=== PATIENT | female | born 1985 | race Caucasian/White ===

== ENCOUNTER → 2020-05-02 13:45 | Outpatient (BNVA) | payer OTHER, SELFPAY | PROVIDERS: PCP Internal Medicine; Visit Provider Surgery ==

== ENCOUNTER → 2020-05-09 10:31 | Outpatient (BNVA) | payer OTHER, SELFPAY | PROVIDERS: PCP Internal Medicine; Visit Provider Surgery | DX: Z76.89 Persons encountering health services in other specified circumstances (principal) ==

== ENCOUNTER 2020-05-18 12:48 | Outpatient (RCR) | payer OTHER, SELFPAY ==
[2020-05-29 13:47] LABS: MANUAL DIFF FLAG NO
[2020-05-29 13:53] LABS: Basophils Absolute Auto 0.1 X10*3/uL (0.0-0.2); Eosinophils Absolute Auto 0.1 X10*3/uL (0.0-0.4); Eosinophils Percent Auto 2.5 % (0-4); Hematocrit 38.4 % (37-47); Hemoglobin 12.9 g/dl (12.0-16.0); Imm Gran Abs Auto 0.01 X10*3/uL (0.00-0.03); Imm Gran Pct Auto 0.2 % (0.0-0.4); Lymphocytes Absolute Auto 2.2 X10*3/uL (1.2-4.9); Mean Corpuscular HGB Conc 33.6 g/dl (31.0-35.0); Mean Corpuscular Hemoglobin 31.6 pg (27.0-33.0); Mean Corpuscular Volume 94.1 fL (80-98); Mean Platelet Volume 10.1 fL (9.4-12.3); Monocytes Absolute Auto 0.4 X10*3/uL (0.1-1.2); Monocytes Percent Auto 7.7 % (2-11); Neutrophils Absolute Auto 2.4 X10*3/uL (2.0-8.3); Neutrophils Percent Auto 46.6 % (45-73); Platelet Count 363 X10*3/uL (160-400); Red Blood Count 4.08 X10*6/uL (4.20-5.50); Red Cell Distribution Width 12.2 % (11.0-16.0); White Blood Count 5.2 X10*3/uL (4.8-10.8)
[2020-05-29 14:15] LABS: C Reactive Protein 0.19 mg/dL (< or = 0.50); Rheumatoid Factor < 15.0 IU/mL (<15.0)
[2020-05-29 14:58] LABS: Erythrocyte Sedimentation Rate 2 MM/HR (0-20)
[2020-05-30 05:16] LABS: Lyme Abs Screen <0.90 index
[2020-05-30 13:11] LABS: Anti Nuclear Antibody Screen NEGATIVE (NEGATIVE)
[2020-05-30 13:57] LABS: Complement C3 120 mg/dL (83-193)
[2020-06-04 13:27] LABS: HLA B27 Negative (Negative)
[2020-06-11 14:22] LABS: PTT (LAC) Screen 28 sec (< OR = 40)
== END 2020-08-02 10:36 | disposition home or self-care (01) ==
LOC: HO.WCC 12:48
PROVIDERS: Visit Provider Physician Assistant
DX: S21.001D Unspecified open wound of right breast, subsequent encounter (principal); I10 Essential (primary) hypertension; Z98.82 Breast implant status
CPT/HCPCS: 11042; 36415; 84134; 85025; 85597; 85613; 85652; 85730; 86038; 86039; 86140; 86160; 86225; 86431; 86618; 86812; 99212; 99213

== ENCOUNTER 2021-04-18 07:58 | Outpatient (RCR) | payer OTHER, SELFPAY | END 2021-05-27 15:34 | disposition home or self-care (01) | LOC: HO.WCC 07:58 | PROVIDERS: Visit Provider Surgery | DX: S21.001D Unspecified open wound of right breast, subsequent encounter (principal); Z98.82 Breast implant status; Z79.2 Long term (current) use of antibiotics | CPT/HCPCS: 99213 ==

== ENCOUNTER 2021-06-05 10:41 | Outpatient (REF) | payer OTHER, SELFPAY ==
[2021-06-05 13:54] LABS: Hemoglobin 13.4 g/dl (12.0-16.0); Mean Corpuscular HGB Conc 33.5 g/dl (31.0-35.0); Mean Corpuscular Hemoglobin 31.5 pg (27.0-33.0); Mean Corpuscular Volume 93.9 fL (80.0-98.0); Mean Platelet Volume 10.2 fL (9.4-12.3); Platelet Count 386 X10*3/uL (160-400); Red Blood Count 4.26 X10*6/uL (4.20-5.50); Red Cell Distribution Width 12.3 % (11.0-16.0); White Blood Count 7.2 X10*3/uL (4.8-10.8)
[2021-06-05 14:08] LABS: Alanine Aminotransferase 12 U/L (0-31); Albumin Level 4.6 g/dL (3.5-5.0); Alkaline Phosphatase 51 U/L (39-117); Anion Gap 12 (12-20); Aspartate Amino Transferase 17 U/L (5-31); Blood Urea Nitrogen 11 mg/dL (9-16); Calcium 9.6 mg/dL (8.4-10.2); Carbon Dioxide 30 mmol/L (22-29); Chloride 102 mmol/L (96-108); Cholesterol 159 mg/dL; Estimated Glomerular Filt Rate > 60; Glucose Fasting 87 mg/dL (60-99); HDL Cholesterol 49 mg/dL; LDL Cholesterol Calculated 83 mg/dl; Potassium 4.5 mmol/L (3.3-5.1); Sodium 139 mmol/L (135-145); Total Protein 7.7 g/dL (6.5-8.0); Triglycerides 137 mg/dL
== END 2021-06-05 10:42 | disposition home or self-care (01) ==
LOC: HO.HMGCLDS 10:41
PROVIDERS: Visit Provider Internal Medicine
DX: Z00.00 Encounter for general adult medical examination without abnormal findings (principal); S06.0X9A Concussion with loss of consciousness of unspecified duration, initial encounter; X58.XXXA Exposure to other specified factors, initial encounter; Y93.9 Activity, unspecified; Y92.9 Unspecified place or not applicable; Y99.9 Unspecified external cause status
CPT/HCPCS: 36415; 80053; 80061; 85027

== ENCOUNTER 2021-06-14 08:03 | Outpatient (REF) | payer OTHER, SELFPAY ==
--- NOTE | ~2021-06-14 | MR_ITS ---
EXAMINATION: MR BRAIN WITHOUT AND WITH CONTRAST CLINICAL INFORMATION: Concussion and prior fall. Prior CT showed intracranial cyst. Further evaluate. COMPARISON: None. TECHNIQUE: Multiplanar, multisequence imaging of the brain was performed before and after the intravenous administration of 8.5 mL of Gadavist. FINDINGS: No diffusion abnormalities are identified to suggest an acute infarct. The ventricles are normal in size. No mass effect or midline shift is seen. Minimal nonspecific subcentimeter foci of T2 hyperintense signal change visible in the cerebral white matter. No extra-axial fluid collections are seen. The brainstem and cerebellum are normal. On postcontrast imaging, there is no abnormal parenchymal or leptomeningeal enhancement. 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 The gradient refocused acquisition demonstrates no pathologic magnetic susceptibility artifact to indicate underlying acute or chronic blood products. The craniovertebral junction, marrow signal, and midline structures are normal. The major intracranial flow voids at the level of the quileute of Arora are preserved. The dural venous sinus flow voids are maintained. The mastoid air cells and paranasal sinuses are well aerated. MR/MR head/brain wo/w con IMPRESSION: Incidental small 7 mm pineal cyst. Minimal white matter signal changes of indeterminate clinical significance. Otherwise, relatively normal MRI of the brain.
== END 2021-06-14 08:04 | disposition home or self-care (01) ==
LOC: HO.MRI 08:03
PROVIDERS: Visit Provider Internal Medicine
DX: G93.0 Cerebral cysts (principal)
CPT/HCPCS: 70553; A9585

== ENCOUNTER 2023-05-14 11:18 | Outpatient (AMB) | payer OTHER, SELFPAY ==
--- NOTE | 2023-05-14 11:42 | A.OFFPC_ITS ---
Vital Signs 05/14/23 11:45 Height 5 ft 6 in Weight 139 lb BMI 22.4 BP 108/70 Blood Pressure Location Lt brachial Position Sitting Pulse 84 Pulse Source Pulse Oximeter Pulse Oximetry (%) 97 Oxygen Delivery Method Room Air Intake Visit Reasons: Annual check up and continuing sleep issues Intake Note: Pt is here today for PE. Allergies No Known Allergies Allergy (Verified 05/14/23 11:47) Tobacco use date assessed: 05/14/23 Dental Screening Dental Screen Date: 05/14/23 Did you have a dental visit in the last 12 months?: Yes Did you have a dental problem in the last 6 months where you did not have access to dental care?: No Was dental information given to patient?: Patient has dentist HPI Annual check up and continuing sleep issues HPI Details Pt presents for PE. Pt patient complains of insomnia increasing anxiety for the last few months. She got last June and has tried counseling in the past but did not find it helpful. Patient lost 50 lb of Mounjaro prescribed by [employer] online. She has been exercising twice a week [facility] Medical History (Updated 05/14/23 @ 13:31 by Amee Wong MD) Normal pelvic exam Concussion Annual physical exam Brain cyst Skin ulcer of female breast Depression Cellulitis of right breast PCOS (polycystic ovarian syndrome) Surgical History History of breast surgery History of delivery Family History Mother No problems noted. 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 1. Little interest or pleasure in doing things: not at all 2. Feeling down, depressed, or hopeless: not at all 3. Trouble falling or staying asleep, or sleeping too much: nearly every day 4. Feeling tired or having little energy: several days 5. Poor appetite or overeating: not at all 6. Feeling bad about yourself - or that you are a failure or have let yourself or your family down: not at all 7. Trouble concentrating on things, such as reading the newspaper or watching television: not at all 8. Moving or speaking so slowly that other people could have noticed. Or the opposite - being so fidgety or restless that you have been moving around a lot more than usual: not at all 9. Thoughts that you would be better off or of hurting yourself in some way: not at all Total score: 4 Depression Screening Interpretation: Negative Depression Screening Done: Yes Source: Developed by Drs. Nitin Carson, Sherrie Delcid, Torin Marin and colleagues, with an educational travon from [employer]. Thrive Questionnaire I am a: Patient What is your living situation today?: I have a steady place to live Within the past 12 months, did the food you bought not last and you didn't have the money to get more?: Never true Within the past 12 months, did you worry whether your food would run out before you got money to buy more?: Never true Do you have trouble paying for medicines?: No Do you have trouble getting transportation to medical appointments?: No Do you have trouble paying your heating and electricity bill?: No Do you have trouble taking care of your child, family member or friend?: No Do you have trouble with day-to-day activities such as bathing, preparing meals, shopping, managing finances, etc.?: No Are you currently unemployed and looking for a job?: No Are you interested in more education?: No Please select the resources that you would like help with: None THRIVE Score: 0 AUDIT C Alcohol Use Questionnaire (AUDIT-C) 1. How often do you have a drink containing alcohol?: 2-4 times a month 2. How many drinks containing alcohol do you have on a typical day when you are drinking?: 1 or 2 3. How often do you have six or more drinks on one occasion?: Never Total Score: 2 SVEN-7 AMB Questionnaire SVEN-7 Feeling nervous, anxious, or on edge: 1 = Several days Not being able to stop or control worryin = Not at all Worrying too much about different things: 0 = Not at all Trouble relaxin = Nearly every day Being so restless that it is hard to sit still: 0 = Not at all Becoming easily annoyed or irritable: 1 = Several days Feeling afraid as if something awful might happen: 0 = Not at all Total SVEN-7 score (0-4 normal; 5-9 mild; 10-14 moderate; 15-21 severe): 5 Source: Developed by Drs. Nitin Carson, Sherrie Delcid, Torin Marin and colleagues, with an educational travon from [employer]. Review of Systems Const All systems reviewed & are unremarkable except as noted in HPI and below Reports no additional complaints Eyes Reports no additional complaints ENT Reports no additional complaints Card Reports no additional complaints Resp Reports no additional complaints GI Reports no additional complaints Reports no additional complaints Physical exam (Primary Care) Vital Signs: Last Vital Signs Pulse 84 05/14/23 11:45 BP 108/70 05/14/23 11:45 Pulse Ox 97 05/14/23 11:45 Oxygen Delivery Method Room Air 05/14/23 11:45 BMI result Body Mass Index 22.4 Tobacco/Smoking Status: Tobacco use Status Tobacco use date assessed 05/14/23 05/14/23 11:50 Patient Tobacco Use Status Never used Tobacco 05/14/23 11:50 e-Cigarette/Vaping Use Never Used 05/14/23 11:43 PHQ-9: PHQ-9 Score PHQ-9: Total score 4 05/14/23 11:51 Depression Screening Interpretation: Negative Const General: no acute distress HENMT Head: Yes normal to inspection Ears: hearing grossly normal bilaterally Face and sinus: Yes normal facial exam Throat: Yes posterior oropharynx normal Eyes General: appearance normal, both eyes and all related structures Neck Neck: Yes no lymphadenopathy and Yes supple Resp Effort & Inspection: normal respiratory effort Auscultation: clear to auscultation bilaterally Cardio Rhythm: regular rhythm Heart sounds: S1 normal heart sound present and S2 normal heart sound present GI Inspection: Yes normal to inspection Palpation (GI): Soft to palpation Percussion: Yes normal to percussion Auscultation: normal bowel sounds Assessment and Plan Assessment & Plan (1) Annual physical exam: Code(s): Z00.00 - Encounter for general adult medical examination without abnormal findi ngs Plan: Well-balanced diet regular exercise discussed with the patient. She is up-to-date with the Pap smear by wellness educator (2) Anxiety: Code(s): F41.9 - Anxiety disorder, unspecified Plan: Stress management regular relaxation exercises yoga and mindfulness discussed with the patient. Zoloft 25 mg daily will be started patient will follow-up in 1 month. She declined referral to counseling but will ask her friends for recommendations Medications: New sertraline (Zoloft) 25 mg PO DAILY 90 tabs 1RF Coding Level of Care Code Est Pt Prev Care 18-39y(16687) Diagnoses Annual physical exam Z00.00 Anxiety F41.9
[2023-05-14 11:45] VITALS: BP 108/70; PULSE 84; O2SAT 97; BMI 22.4
== END 2023-05-14 13:32 | disposition home or self-care (01) ==
PROVIDERS: PCP Internal Medicine; Visit Provider Internal Medicine
DX: Z00.00 Encounter for general adult medical examination without abnormal findings (principal); F41.9 Anxiety disorder, unspecified
CPT/HCPCS: 99395

== ENCOUNTER 2024-07-19 10:28 | Outpatient (AMB) | payer OTHER, SELFPAY ==
[2024-07-19 10:35] VITALS: BP 118/70; PULSE 98; RESP 20; TEMP 36.9; O2SAT 99; BMI 22.6
--- NOTE | 2024-07-19 10:35 | MHC.PC.OV ---
Vital Signs 07/19/24 10:35 Height 5 ft 6 in Weight 140 lb BMI 22.6 BP 118/70 Blood Pressure Location Lt brachial Position Sitting Respiration 20 Pulse 98 Pulse Source Pulse Oximeter Temp 98.5 F Temp Source Oral Pulse Oximetry (%) 99 Oxygen Delivery Method Room Air Intake Visit Reasons: chest pain x 2 weeks Intake Note: Pt is here today for sick visit. Pt c/o chest pain for 2 weeks now. Pt states that the pain constant pressure and heaviness. Allergies No Known Allergies Allergy (Verified 07/19/24 10:35) Medication List - Last Reconciled 07/19/24 by Amee Wong MD prednisone Four tablets p.o. q.d. for 3 days then 3 tablets p.o. q.d. for 3 days then 2 tablets p.o. q.d. for 3 days then 1 tablet p.o. q.d. for 3 days Tobacco use date assessed: 07/19/24 Dental Screening Dental Screen Date: 07/19/24 Did you have a dental visit in the last 12 months?: Yes Did you have a dental problem in the last 6 months where you did not have access to dental care?: No Was dental information given to patient?: Patient has dentist HPI chest pain x 2 weeks HPI Details Pt c/o L side chest pain pressure like constant for 2 weeks, becoming sharp with the movement of the body when elevating left arm, radiating to left scapula. Patient denies falls or injury nausea vomiting fever chills cough shortness or breath pleurisy abdominal pain change in bowels recent travel. Patient tried ibuprofen without significant relief. [facility] Medical History (Updated 07/19/24 @ 11:27 by Amee Wong MD) Normal pelvic exam Concussion Annual physical exam Brain cyst Skin ulcer of female breast Depression Cellulitis of right breast PCOS (polycystic ovarian syndrome) Surgical History History of breast surgery History of delivery Family History Mother No problems noted. 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: House Alcohol intake: current Alcohol intake frequency: a few times a month Patient Tobacco Use Status: Never used Tobacco e-Cigarette/Vaping Use: Never Used service: No Current occupational status: employed Cognitive needs: No Hearing needs: No Vision needs: Yes Questionnaire Thrive Questionnaire Date Thrive assessed: 07/19/24 I am a: Patient What is your living situation today?: I have a steady place to live Within the past 12 months, did the food you bought not last and you didn't have the money to get more?: Never true Within the past 12 months, did you worry whether your food would run out before you got money to buy more?: Never true Do you have trouble paying for medicines?: No Do you have trouble getting transportation to medical appointments?: No Do you have trouble paying your heating and electricity bill?: No Do you have trouble taking care of your child, family member or friend?: No Do you have trouble with day-to-day activities such as bathing, preparing meals, shopping, managing finances, etc.?: No Are you currently unemployed and looking for a job?: No Are you interested in more education?: No Please select the resources that you would like help with: None THRIVE Score: 0 SVEN-7 AMB Questionnaire SVEN-7 Date SVEN - 7 assessed: 07/19/24 Feeling nervous, anxious, or on edge: 1 = Several days Not being able to stop or control worryin = Not at all Worrying too much about different things: 0 = Not at all Trouble relaxin = Nearly every day Being so restless that it is hard to sit still: 0 = Not at all Becoming easily annoyed or irritable: 1 = Several days Feeling afraid as if something awful might happen: 0 = Not at all Total SVEN-7 score (0-4 normal; 5-9 mild; 10-14 moderate; 15-21 severe): 5 Source: Developed by Drs. Nitin Carson, Sherrie Delcid, Torin Marin and colleagues, with an educational travon from [employer]. SVEN-7 Assessment Billing SVEN-7 Assessment Tool: SVEN-7 Assessment 28227 Review of Systems Const All systems reviewed & are unremarkable except as noted in HPI and below ENT Reports no additional complaints Card Reports no additional complaints Resp Reports no additional complaints Reports no additional complaints Musc Reports no additional complaints Physical exam (Primary Care) Vital Signs: Last Vital Signs Temp 98.5 F 07/19/24 10:35 Pulse 98 07/19/24 10:35 Resp 20 07/19/24 10:35 BP 118/70 07/19/24 10:35 Pulse Ox 99 07/19/24 10:35 Oxygen Delivery Method Room Air 07/19/24 10:35 BMI result Body Mass Index 22.6 Tobacco/Smoking Status: Tobacco use Status Tobacco use date assessed 07/19/24 07/19/24 10:37 Patient Tobacco Use Status Never used Tobacco 07/19/24 10:37 e-Cigarette/Vaping Use Never Used 07/19/24 10:37 Thrive Assessment: Date of Thrive Assessment Date Thrive assessed 07/19/24 07/19/24 10:44 Const General: no acute distress HENMT Head: Yes normal to inspection Neck Neck: Yes supple Chest Chest palpation & inspection: localized rib tenderness with anteroposterior compression (Left upper chest) Resp Effort & Inspection: normal respiratory effort Auscultation: clear to auscultation bilaterally Cardio Rhythm: regular rhythm Heart sounds: S1 normal heart sound present and S2 normal heart sound present GI Inspection: Yes normal to inspection Palpation (GI): Soft to palpation Extrem Other: Was reproducible tenderness over left anterior shoulder, there is a full range of motion in the left shoulder no soft tissue swelling erythema warmth or rash Coding Level of Care Code Est Pt Level 3 (72363) Diagnoses Costochondral chest pain R07.89 Additional Codes SVEN-7 Assessment Billing - SVEN-7 Assessment Tool: SVEN-7 Assessment [id number] ([id number]) Assessment & Plan Assessment & Plan (1) Costochondral chest pain: Code(s): R07.89 - Other chest pain Category: Medical Plan: EKG showed normal sinus rhythm no ST-T changes. Prednisone taper as prescribed patient will return for fasting blood work tomorrow and supportive care discussed with the patient Orders: Orders Lipid Panel Today Z00.00 - Encounter for general adult medical examination without abnormal findings Comprehensive Logan. Panel Fast Today Z00.00 - Encounter for general adult medical examination without abnormal findings Complete Blood Count Auto Diff Today Z00.00 - Encounter for general adult medical examination without abnormal findings Vitamin D 25-OH Total Today Z00.00 - Encounter for general adult medical examination without abnormal findings Erythrocyte Sedimentation Rate Today Z00.00 - Encounter for general adult medical examination without abnormal findings TSH reflex Free T4 Today Z.00 - Encounter for general adult medical examination without abnormal findings D Dimer High Sensitivity Today Z. - Encounter for general adult medical examination without abnormal findings UA w Microscopic Today Z. - Encounter for general adult medical examination without abnormal findings Medications: New prednisone Four tablets p.o. q.d. for 3 days then 3 tablets p.o. q.d. for 3 days then 2 tablets p.o. q.d. for 3 days then 1 tablet p.o. q.d. for 3 days 30 tabs 0RF
--- OUTSIDE RECORDS SUMMARY | 2024-07-19 12:31 | XMS_ITS | Clinical Summary ---
Author Organization [facility] Address [address] [place] [address] Care Team Providers Care Packing Machine Pilot Can Router Name Role Phone Maicol Weinstein MD Primary Care Provider Allergies No known active allergies Medications Medication Sig Dispensed Refills Start Date End Date Status metFORMIN (GLUCOPHAGE) 500 MG tablet Take 500 mg by mouth 2 (two) times a day with meals. Active BUPROPION HBR ER PO Take 150 mg by mouth daily. Active escitalopram (LEXAPRO) 20 MG tablet Take 20 mg by mouth daily. Active cloNIDine (CATAPRES) 0.1 MG tablet Take 0.2 mg by mouth nightly as needed. 08/08/2021 Active nortriptyline (PAMELOR) 50 MG capsuleIndications:D ifficulty sleeping Take 2 capsules (100 mg total) by mouth nightly. 60 capsule 1 09/10/2021 Active Active Problems No known active problems Social History Tobacco Use Types Packs/Day Years Used Date Smoking Tobacco: Never Smokeless Tobacco: Never PHQ-2 Answer Date Recorded PHQ-2 Total Score 0 06/26/2021 Sex and Gender Information Value Date Recorded Sex Assigned at Not on file Gender Identity Not on file Sexual Orientation Not on file Last Filed Vital Signs Vital Sign Reading Time Taken Comments Blood Pressure 142/90 09/05/2021 11:12 AM EDT Pulse 87 09/05/2021 11:12 AM EDT Temperature - - Respiratory Rate 16 09/05/2021 11:12 AM EDT Oxygen Saturation - - Inhaled Oxygen Concentration - - Weight 79.4 kg (175 lb) 09/05/2021 11:12 AM EDT Height 167.6 cm (5' 6 ) 09/05/2021 11:12 AM EDT Body Mass Index 28.25 09/05/2021 11:12 AM EDT Plan of Treatment Health Maintenance Due Date Last Done Comments Hepatitis C Virus Screening 1983 HIV Screening 12/07/1996 DTaP/Tdap/Td Vaccines (1 - Tdap) 12/07/2002 Hepatitis B Vaccines (1 of 3 - 19+ 3-dose series) 12/07/2002 Pap Smear (Ages 21-65) 12/07/2004 Influenza Vaccine 11/12/2023 04/15/2020 Mammogram 2023 COVID-19 Vaccine (1 - 2023-2 5 season) 2023 HPV Vaccines Aged Out No longer eligi ble based on patient's age to complete this topic Pneumococcal Vaccine: Pediat jorje (0-5 Years) and At-Risk Patients (6 to 49 Years) Aged Out No longer eligible b ased on patient's age to complete this topic Care Teams Packing Machine Pilot Can Router Relationship Specialty Start Date End Date Maicol Weinstein MD [address] [place] [id number] PCP - General 01/01/07
--- OUTSIDE RECORDS SUMMARY | 2024-07-19 12:31 | XMS_ITS | Encounter Summary ---
Author Organization [facility] Address [address] [place] [address] Care Team Providers Care Surveyor Chain Helper Name Role Phone Maicol Weinstein MD Primary Care Provider [phone] Encounter Details Date Type Department Care Team (Late st Contact Info) Description 06/26/2021 Telephone [facility] [address] [place] [address] [address] [phone] Beverly Alvarez MD [address] [facility] [address] [place] [id number] Social History Tobacco Use Types Packs/Day Years Used Date Smoking Tobacco: Never Smokeless Tobacco: Never PHQ-2 Answer Date Recorded PHQ-2 Total Score 0 06/26/2021 Sex and Gender Information Value Date Recorded Sex Assigned at Not on file Gender Identity Not on file Sexual Orientation Not on file COVID-19 Exposure Response Date Recorded In the last month, have you been in contact with someone who was confirmed or suspected to have Coronavirus / COVID-19? No / Unsure 06/26/2021 3:41 PM EDT documented as of this encounter Plan of Treatment Not on file documented as of this encounter Visit Diagnoses Not on filedocumented in this encounter Care Teams Surveyor Chain Helper Relationship Specialty Start Date End Date Maicol Weinstein MD [address] [place] [address] PCP - General 01/01/07 documented as of this encounter
--- OUTSIDE RECORDS SUMMARY | 2024-07-19 12:31 | XMS_ITS | Clinical Summary ---
Author Organization [facility] Address [address] [place] [address] Care Team Providers Care Waxer Tender Name Role Phone Vamsi Reyes DO Primary Care Provider [phone] Social History Tobacco Use Types Packs/Day Years Used Date Smoking Tobacco: Never Assessed Comments Unknown Sex and Gender Information Value Date Recorded Sex Assigned at Not on file Legal Sex Female 11:07 PM EST Gender Identity Not on file Sexual Orientation Not on file Plan of Treatment Health Maintenance Due Date Last Done Comments Breast Cancer Screening 1983 DTaP,Tdap,and Td Vaccines (1 - Tdap) 12/07/2002 Hepatitis B Vaccines (1 of 3 - 19+ 3-dose series) 12/07/2002 Cervical Cancer Screening: P ap Smear 12/07/2004 HIV Screening 03/16/2022 COVID-19 Vaccine (2023-2 5 season) 2023 Influenza Vaccine (#1) 2023 HIB Vaccines Aged Out No longer eligi ble based on patient's age to complete this topic HPV Vaccines Aged Out No longer eligi ble based on patient's age to complete this topic Hepatitis A Vaccines Aged Out No long er eligible based on patient's age to complete this topic IPV Vaccines Aged Out No longer eligi ble based on patient's age to complete this topic MMR Vaccines Aged Out No longer eligi ble based on patient's age to complete this topic Meningococcal ACWY Vaccine Aged Out N o longer eligible based on patient's age to complete this topic Meningococcal B Vaccine Aged Out No l onger eligible based on patient's age to complete this topic Pneumococcal Vaccine: Pediat rics (0 to 5 Years) and At-Risk Patients (6 to 64 Years) Aged Out No longer eligible b ased on patient's age to complete this topic RSV Immunization Patients Un erick 20 months Aged Out No longer eligible b ased on patient's age to complete this topic Varicella Vaccines Aged Out No longer eligible based on patient's age to complete this topic Care Teams Waxer Tender Relationship Specialty Start Date End Date Vamsi Reyes DO [address] [place] [id number] PCP - General Family Medicine 09/24/15
--- OUTSIDE RECORDS SUMMARY | 2024-07-19 12:31 | XMS_ITS | Encounter Summary ---
Author Organization [facility] Address [address] [place] [address] Care Team Providers Care Traffic Personnel Supervisor Name Role Phone Maicol Weinstein MD Primary Care Provider [phone] Reason for Visit * Reason Comments Medication Refill Encounter Details Date Type Department Care Team (Late st Contact Info) Description 09/03/2021 Refill [facility] [address] [place] [phone] Beverly Alvarez MD 85 [facility] [address] [place] [address] Difficulty sleeping Social History Tobacco Use Types Packs/Day Years Used Date Smoking Tobacco: Never Smokeless Tobacco: Never PHQ-2 Answer Date Recorded PHQ-2 Total Score 0 06/26/2021 Sex and Gender Information Value Date Recorded Sex Assigned at Not on file Gender Identity Not on file Sexual Orientation Not on file COVID-19 Exposure Response Date Recorded In the last 10 days, have yo u been in contact with someone who was confirmed or suspected to have Coronavirus/COVID-19? No / Unsure 09/05/2021 10:59 AM EDT documented as of this encounter Plan of Treatment Not on file documented as of this encounter Visit Diagnoses Diagnosis Difficulty sleeping Unspecified sleep disturbance documented in this encounter Care Teams Traffic Personnel Supervisor Relationship Specialty Start Date End Date Maicol Weinstein MD [address] [place] [address] PCP - General 01/01/07 documented as of this encounter
--- OUTSIDE RECORDS SUMMARY | 2024-07-19 12:31 | XMS_ITS | Clinical Summary ---
Author Organization [facility] Address [address] [place] [id number] Care Team Providers Care Snack Steward Name Role Phone Vamsi Reyes DO Primary Care Provider [phone] Allergies No known active allergies Medications Medication Sig Dispensed Refills Start Date End Date Status MetFORMIN HCl (GLUMETZA PO) Take by mouth. 0 Active Social History Tobacco Use Types Packs/Day Years Used Date Smoking Tobacco: Never Assessed Sex and Gender Information Value Date Recorded Sex Assigned at Not on file Gender Identity Not on file Sexual Orientation Not on file Last Filed Vital Signs Vital Sign Reading Time Taken Comments Blood Pressure 149/79 09/24/2015 4:27 PM EDT Pulse 82 09/24/2015 4:27 PM EDT Temperature 36.8 ??C (98.3 ??F) 09/24/2015 4:27 PM ED T Respiratory Rate 16 09/24/2015 4:27 PM EDT Oxygen Saturation 98% 09/24/2015 4:27 PM EDT Inhaled Oxygen Concentration - - Weight 68 kg (150 lb) 09/24/2015 4:27 PM EDT Height 165.1 cm (5' 5 ) 09/24/2015 4:27 PM EDT Body Mass Index 24.96 09/24/2015 4:27 PM EDT Plan of Treatment Health Maintenance Due Date Last Done Comments Hepatitis B Vaccines (1 of 3 - 3-dose series) 1983 Hepatitis C Screening 1983 COVID-19 Vaccine (#1) 06/09/1984 Depression Screening 1995 Preventative Health Evaluation 12/07/2001 DTap / Tdap / Td (1 - Tdap) 12/07/2002 Cervical Cancer Screening (P ap Smear) 12/07/2004 Influenza Vaccine (#1) 2023 Pneumococcal Vaccine Aged Out No long er eligible based on patient's age to complete this topic RSV Ped < 20 months Aged Out No longe r eligible based on patient's age to complete this topic Care Teams Snack Steward Relationship Specialty Start Date End Date Vamsi Reyes DO [address] [place] [address] PCP - General Family Medicine 09/24/15
== END 2024-07-19 11:20 | disposition home or self-care (01) ==
LOC: HO.HMCC 10:28
PROVIDERS: PCP Internal Medicine; Visit Provider Internal Medicine
DX: R07.89 Other chest pain (principal)

== ENCOUNTER → 2024-07-19 10:28 | Outpatient (BNVA) | payer OTHER, SELFPAY | PROVIDERS: PCP Internal Medicine; Visit Provider Internal Medicine | DX: R07.89 Other chest pain (principal) | CPT/HCPCS: 96127 ==

== ENCOUNTER 2024-07-20 06:40 | Outpatient (REF) | payer OTHER, SELFPAY ==
--- OUTSIDE RECORDS SUMMARY | 2024-07-20 06:43 | XMS_ITS | Encounter Summary ---
Author Organization [facility] Address [address] [place] [address] Care Team Providers Care Title Insurance Examiner Name Role Phone Maicol Weinstein MD Primary Care Provider [phone] Reason for Visit * Reason Comments Medication Refill Encounter Details Date Type Department Care Team (Late st Contact Info) Description 09/03/2021 Refill [facility] [address] [id number] Beverly Alvarez MD [address] [facility] [address] [place] [address] Difficulty sleeping Social History Tobacco Use Types [...] disturbance documented in this encounter Care Teams Title Insurance Examiner Relationship Specialty Start Date End Date Maicol Weinstein MD [address] [place] [address] PCP - General 01/01/07 documented as of this encounter
--- OUTSIDE RECORDS SUMMARY | 2024-07-20 06:43 | XMS_ITS | Encounter Summary ---
Author Organization [facility] Address [address] [place] [address] Care Team Providers Care Warp Drawer Name Role Phone Maicol Weinstein MD Primary Care Provider Encounter Details Date Type Department Care Team (Late st Contact Info) Description 06/26/2021 Telephone [facility] [address] [place] [address] [address], [place] [id number] Beverly Alvarez MD 85 [facility] [address] [place] [id number] Social History Tobacco Use Types Packs/Day Years [...] on filedocumented in this encounter Care Teams Warp Drawer Relationship Specialty Start Date End Date Maicol Weinstein MD [address] [place] [address] PCP - General 01/01/07 documented as of this encounter
--- OUTSIDE RECORDS SUMMARY | 2024-07-20 06:43 | XMS_ITS | Clinical Summary ---
Author Organization [facility] [address] Address [address] [place] [address] Care Team Providers Care Ethics Manager Name Role Phone Vamsi Reyes DO Primary Care Provider [phone] Social History Tobacco Use Types Packs/Day Years [...] age to complete this topic Care Teams Ethics Manager Relationship Specialty Start Date End Date Vamsi Reyes DO [address] [place] [id number] PCP - General Family Medicine 09/24/15
--- OUTSIDE RECORDS SUMMARY | 2024-07-20 06:43 | XMS_ITS | Clinical Summary ---
Author Organization [facility] Address [address] [place] [address] Care Team Providers Care Wood Craftsman Name Role Phone Maicol Weinstein MD Primary Care Provider [phone] Allergies No known active allergies Medications Medication [...] age to complete this topic Care Teams Wood Craftsman Relationship Specialty Start Date End Date Maicol Weinstein MD [address] [place] [address] PCP - General 01/01/07
[2024-07-20 10:29] LABS: MANUAL DIFF FLAG NO
[2024-07-20 10:58] LABS: Appearance Urine Turbid; Color Urine Yellow; Glucose Urine UA Negative (Negative); Leukocyte Esterase Urine Negative (Negative); Nitrite Urine Negative (Negative); PH 5.5 (5.0-9.0); Urine Blood Negative (Negative); Urine Ketones Negative (Negative); Urine Protein Negative (Neg-Trace)
[2024-07-20 11:03] LABS: Basophils Percent Auto 0.1 % (0-2); Hematocrit 41.6 % (37.0-47.0); Hemoglobin 14.1 g/dl (12.0-16.0); Imm Gran Abs Auto 0.01 X10*3/uL (0.00-0.03); Imm Gran Pct Auto 0.1 % (0.0-0.4); Lymphocytes Absolute Auto 1.2 X10*3/uL (1.2-4.9); Lymphocytes Percent Auto 16.5 % (20-40); Mean Corpuscular HGB Conc 33.9 g/dl (31.0-35.0); Mean Corpuscular Hemoglobin 32.1 pg (27.0-33.0); Mean Corpuscular Volume 94.8 fL (80.0-98.0); Mean Platelet Volume 10.3 fL (9.4-12.3); Monocytes Absolute Auto 0.2 X10*3/uL (0.1-1.2); Monocytes Percent Auto 3.3 % (2-11); Neutrophils Absolute Auto 5.9 x10*3/uL (2.0-8.3); Platelet Count 437 X10*3/uL (160-400); Red Blood Count 4.39 X10*6/uL (4.20-5.50); Red Cell Distribution Width 12.2 % (11.0-16.0); White Blood Count 7.3 X10*3/uL (4.8-10.8)
[2024-07-20 11:06] LABS: D Dimer High Sensitivity < 150 NG/ML
[2024-07-20 11:15] LABS: Bacteria Urine 1+ (None Seen); Hyaline Casts Urine 0-2 /LPF (0-2); RBC Urine 0-2 /HPF (0-2); Squamous Epithelial Cell Urine >20 /HPF (0-2); WBC Urine 0-5 /HPF (0-5)
[2024-07-20 11:28] LABS: Alanine Aminotransferase 13 U/L (0-31); Albumin Level 4.7 g/dL (3.5-5.0); Alkaline Phosphatase 50 U/L (39-117); Anion Gap 14 (12-20); Aspartate Amino Transferase 23 U/L (5-31); Bilirubin Total 0.9 mg/dL (0.0-1.0); Blood Urea Nitrogen 6 mg/dL (9-16); Calcium 9.5 mg/dL (8.4-10.2); Carbon Dioxide 23 mmol/L (22-29); Chloride 109 mmol/L (96-108); Cholesterol 143 mg/dL (<200); Estimated Glomerular Filt Rate > 60; Glucose Fasting 96 mg/dL (60-99); HDL Cholesterol 68 mg/dL (>40); LDL Cholesterol Calculated 62 mg/dL (<100); Potassium 4.2 mmol/L (3.3-5.1); Sodium 142 mmol/L (135-145); Triglycerides 69 mg/dL (<150)
[2024-07-20 11:50] LABS: TSH reflex Free T4 0.57 uIU/mL (0.32-4.0); Vitamin D 25-OH Total 45.8 ng/mL (>30)
[2024-07-20 12:12] LABS: Erythrocyte Sedimentation Rate 5 MM/HR (0-20)
== END 2024-07-20 06:41 | disposition home or self-care (01) ==
LOC: HO.HMGCLDS 06:40
PROVIDERS: PCP Internal Medicine; Visit Provider Internal Medicine
DX: Z00.00 Encounter for general adult medical examination without abnormal findings (principal); Z13.6 Encounter for screening for cardiovascular disorders
CPT/HCPCS: 36415; 80053; 80061; 81001; 82306; 84443; 85025; 85379; 85652